=== PATIENT | female | born 1960 | race Caucasian/White ===

== ENCOUNTER → 2020-05-11 | Day surgery (SDC) | payer OTHER ==
[~2020-05-11] MED LIST: ASPIR 8181 M1 PO; LEVO-T100 MCG PO; NORCO 5-325 TA1 EAC1 PO; VITAMIN D250 MCG PO
--- NOTE | ~2020-05-11 | OP ---
[facility] [address] [place] [address] OPERATIVE REPORT Name: MICHAEL MATUTE Room: [facility].#: [id number] Admission: 05/11/20 Attend Phys: Lencho Haro Discharge: Date of : 64 Report #: [id number] THIS REPORT FOR: //name// cc: Gabino Holly Gregory DO ~ THIS REPORT FOR: //name// CC: Gabino Haro DATE OF SERVICE: 05/11/2020 PREOPERATIVE DIAGNOSIS: Symptomatic cholelithiasis. POSTOPERATIVE DIAGNOSIS: Symptomatic cholelithiasis. PROCEDURE PERFORMED: Laparoscopic cholecystectomy. SURGEON: Lencho Haro MD ANESTHESIA: General. ESTIMATED BLOOD LOSS: Minimal. SPECIMEN: Gallbladder. DESCRIPTION OF PROCEDURE: After informed consent was obtained, the patient was brought to the operating room and placed supine. SCDs were placed and working. Preoperative antibiotics were administered. General anesthesia was induced. The abdomen was prepped and draped in the usual sterile fashion. Three right upper quadrant 5-mm ports were placed. The gallbladder was grasped and retracted cephalad. Infundibulum was grasped and retracted laterally. I dissected out the cystic duct and the cystic artery. Cystic duct and artery were identified as well as the cystic plate. Cystic duct and artery were clipped and ligated leaving 2 clips on the remaining duct and one on the remaining artery. The gallbladder was then taken off the liver bed with electrocautery. It was placed into an Endopouch and removed. Fascia was then closed with a [id number] 0 Vicryl. Skin was closed with 4-0 Monocryl. Incisions were sealed with Dermabond. COMPLICATIONS: [place] [address] OPERATIVE REPORT Name: MICHAEL MATUTE Room: [facility]#: [id number] Admission: 05/11/20 Attend Phys: Lencho Haro Discharge: Date of : 64 Report #: [id number] DISPOSITION: The patient was taken to Recovery in satisfactory condition. By: [id number] Haro MD /nt
[2020-05-11 09:40] LABS: POTASSIUM 3.9 mmol/L (3.5-5.1)
[2020-05-11 09:47] LABS: ALBUMIN 3.5 g/dL (3.4-5.0); TOTAL BILIRUBIN 0.3 mg/dL (<0.1-1.0); TOTAL PROTEIN 7.4 g/dL (6.4-8.2)
--- NOTE | 2020-05-12 10:14 | EKG ---
[place] [address] ELECTROCARDIOGRAM REPORT Name: MICHAEL MATUTE Room: [facility]#: [id number] Admission: 05/11/20 Attend Phys: Lencho Levine Discharge: Date of : 64 Date of Service: 05/11/20930 Report #: [id number] THIS REPORT FOR: //name// [facility] Test Date: 2020-05-11 Test Time: 09:31:20 Pat Name: MICHAEL MATUTE Department: Room: Gender: F Splitting Machine Tender: VENITA : 1960 Requested By: Lencho Haro Order Number: [id number] Reading MD: Yony James Measurements Intervals [place] Rate: 85 P: 53 LA: 148 QRS: 64 QRSD: 94 T: 31 QT: 356 QTc: 424 Interpretive Statements Sinus rhythm No previous ECG available for comparison Electronically Signed On 05-12-2020 10:13:16 CDT by Yony James [email or web address] <ELECTRONICALLY SIGNED> By: Yony James MD, [facility] 05/12/20 1013 D: 06930 0 Yony James MD, FACC /EPI
--- NOTE | 2020-05-13 15:08 | PATH ---
[address] [address] PATHOLOGY RPT PROCEDURE Name: MICHAEL CORDOVA Room: [facility].#: [id number] Admission: 05/11/20 Date of : 64 Discharge: Report #: [id number] Path Case #: [id number] [facility] Accession Number: [id number] . 01 Material submitted: . gallbladder - GALLBLADDER . 01 Clinical history: . Calculus of gallbladder . 02 Diagnosis: Gallbladder: - Chronic cholecystitis and cholelithiasis. (GILES/db; 05/13/2020) LBQ 05/13/2020 1218 Local . 02 Electronically signed: . Hilario Russell MD, Pathologist NPI- [id number] . 01 Gross description: . The specimen is received in formalin, labeled "Michael Cordova, gallbladder" and consists of an intact purple arreguin gallbladder measuring 10.6 x 2.8 x 2.8 cm. The margin is inked. Opening reveals green bile and multiple green multifaceted calculi measuring up to 1.3 cm in diameter. The mucosa is green and granular with a wall thickness of 0.1 cm. No gross lesions or lymph nodes are identified. [employer] sections are submitted in A1. (NATY; 05/11/2020) JFQ/JFQ 05/11/2020 2107 Local . 02 Pathologist provided ICD-10: K80.10 . 02 CPT . 234261 Specimen Comment: A courtesy copy of this report has been sent to [phone], [phone] Specimen Comment: [phone] Specimen Comment: Report sent to / DR ANNE Performed at: [address] [place] [id number] [facility] [address], [place], [place] [id number] MD Julio Del Cid MD Phone: [phone] Performed at: 02 [facility] [address], [place], [place] [id number] MD Hilario Russell MD Phone: [phone]
== END | disposition home or self-care (01) ==
LOC: M.SUR 09:06
PROVIDERS: ATTEND Surgery
DX: K80.10 Calculus of gallbladder with chronic cholecystitis without obstruction (principal); E07.9 Disorder of thyroid, unspecified; Z11.59 Encounter for screening for other viral diseases; Z88.0 Allergy status to penicillin; Z88.8 Allergy status to other drugs, medicaments and biological substances